=== PATIENT | female | born 1970 | race Caucasian/White ===

== ENCOUNTER 2024-08-24 15:05 | Emergency (ER) | payer OTHER, BC, MEDICAID, SELFPAY ==
[2024-08-24 15:17] VITALS: BP 162/137; PULSE 72; RESP 19; O2SAT 98; BMI 27.8
--- NOTE | 2024-08-24 15:27 | ED_ITS ---
HPI - Back Pain/Injury 2 General: Chief Complaint: Back Pain/Injury Stated Complaint: abdominal pain Time Seen by Provider: 08/24/24 15:15 Source: patient and family Mode of arrival: wheelchair Limitations: no limitations History of Present Illness: Patient is a nice 54-year-old female who presents to ED today with complaint of right sided back pain. Patient states 3 days ago she was seen at a walk-in clinic because she was having right sided pain along with urinary urgency and frequency. She was reportedly placed on ciprofloxacin for presumed UTI. She states today her pain went from a 3/10 immediately to a 10/10 and patient has been significantly uncomfortable since. She does report one previous kidney stone when she was . She is not running fevers. No vomiting. MD elicited complaint: back pain Pertinent past history: kidney stones Onset (ago): day(s) Timing: constant Severity: severe Pain scale (0-10): 10 Quality: sharp and stabbing Location: right lower back Radiation: abdomen Exacerbating factors: none Relieving factors: none Associated symptoms: Reports nausea, urinary urgency and other (urinary urgency/frequency); Deny abdominal pain, chills, dysuria, fatigue, fever(s) or vomiting Work related injury: No Related Data Previous Rx's ?Medication ?Instructions ?Recorded hydrocodone 5 mg-acetaminophen 325 1 tab PO .q 4-6 PRN pain #20 tabs 08/24/24 mg tablet ondansetron 4 mg disintegrating 4 mg PO Q8H PRN nausea and 08/24/24 tablet vomiting #14 tabs tamsulosin 0.4 mg capsule (Flomax) 0.4 mg PO DAILY #10 caps 08/24/24 Review of Systems 2 Const: Denies: fever(s), chills, body aches, fatigue or malaise Card: Denies: chest pain Resp: Denies: dyspnea GI: Reports: nausea; Denies: abdominal pain, vomiting or diarrhea : Reports: urinary frequency and urinary urgency; Denies: flank pain, difficulty voiding, dysuria, dribbling or pelvic pain Musc: Reports: back pain Skin/Breast: Denies: rash Neuro: Denies: headache(s), numbness in extremities, weakness in extremities, sensory changes or dizziness Physical Exam 2 Const: COMMON NORMALS: average body habitus, patient oriented x3, no limitations, healthy appearing, alert and well nourished GENERAL APPEARANCE: cooperative and in distress (appears uncomfortable secondary to pain) O RIENTATION/CONSCIOUSNESS: Yes awake, Yes oriented to person, Yes oriented to place and Yes oriented to time Eye: COMMON NORMALS: no scleral icterus Resp: COMMON NORMALS: normal respiratory effort and clear to auscultation bilaterally AUSCULTATION: clear to auscultation bilaterally Cardio: COMMON NORMALS: regular rate and regular rhythm RATE: regular rate RHYTHM: regular rhythm GI: COMMON NORMALS: Normal to inspection, nondistended, normoactive bowel sounds present, Soft to palpation, non-tender, No hepatosplenomegaly present and no masses INSPECTION: Yes normal to inspection PALPATION: Yes Soft to palpation and Yes No hepatosplenomegaly present : COMMON NORMALS: Yes no CVA tenderness BLADDER/KIDNEY EXAM: Yes no CVA tenderness Back/Pelvis: COMMON NORMALS: no CVA tenderness, thoracic and lumbar spine normal to inspection, no thoracic nor lumbar tenderness, thoraco-lumbar ROM normal and straight leg raise negative bilaterally BACK IMAGE (FEMALE): 1. TTP Extremity: GENERAL: Yes normal exam except as noted Neuro: COMMON NORMALS: patient oriented x3, moves all extremities, no focal motor deficits and no sensory deficits noted SENSORIUM/ORIENTATION: Yes alert, Yes oriented to person, Yes oriented to place and Yes oriented to time Skin: COMMON NORMALS: no rashes or lesions noted GENERAL SKIN EXAM: no rashes or lesions noted Course 2 Vital Signs: Vital signs: Vital Signs Pulse Rate 67 08/24/24 17:34 Respiratory Rate 22 H 08/24/24 16:03 Blood Pressure 159/70 08/24/24 17:34 Pulse Oximetry 95 08/24/24 17:34 Oxygen Delivery Me thod Room Air 08/24/24 16:59 MDM - Back Pain/Injury Medical Decision Making Pain was controllable here. Vital signs are stable. CT scan shows a 2 mm distal right ureter stone consistent with her symptoms. Incidental findings of adrenal adenomas and a left ovarian cyst were discussed with patient. Blood work showing a normal white count. Her BUN/Cr is normal. UA showing 3+ blood. She is positive for nitrates however leukocyte esterase is negative and only 0-4 WBCs. I think unlikely active infection. She is already taking ciprofloxacin. Patient be placed on pain/nausea medication as well as Flomax. She was given a urinary strainer prior to discharge and will have case management set her up with urology. Return to ED precautions discussed. Medical Records I reviewed the patient's medical records. Labs I reviewed the patient's lab results. 08/24/24 16:02 08/24/24 16:02 Radiology Impressions Abdomen/Pelvis CT 08/24/24 15:27 IMPRESSION: 1. 2 mm distal right ureteral stone with hydronephrosis 2. 5.7 cm left ovarian cyst 3. Bilateral adrenal adenomas Laboratory Results WBC 11.10 10^3/uL (3.29-11.43) 08/24/24 16:02 RBC 4.36 10^6/uL (3.85-5.65) 08/24/24 16:02 Hgb 13.70 g/dL (11.27-16.99) 08/24/24 16:02 Hct 39.9 % (36-47) 08/24/24 16:02 MCV 91.5 fl (85-98) 08/24/24 16:02 MCH 31.4 pg (27-33) 08/24/24 16:02 MCHC 34.3 g/dL (30-55) 08/24/24 16:02 RDW 12.5 % (12.1-15.1) 08/24/24 16:02 Plt Count 264 10^3/cmm (157-399) 08/24/24 16:02 MPV 11.4 fL (7.4-10.4) H 08/24/24 16:02 Neut % (Auto) 66.9 % 08/24/24 16:02 Lymph % (Auto) 22.6 % 08/24/24 16:02 Franklin % (Auto) 7.2 % 08/24/24 16:02 Eos % (Auto) 2.3 % 08/24/24 16:02 Baso % (Auto) 0.6 % 08/24/24 16:02 Neut # (Auto) 7.42 10^3/uL (1.8-7.7) 08/24/24 16:02 Lymph # (Auto) 2.5 10^3/uL (0.8-4.8) 08/24/24 16:02 Franklin # (Auto) 0.8 10^3/uL (0.2-0.9) 08/24/24 16:02 Eos # (Auto) 0.3 10^3/uL (0.0-0.8) 08/24/24 16:02 Baso # (Auto) 0.1 10^3/uL (0.0-0.1) 08/24/24 16:02 Nucleated RBC % (auto) 0 % 08/24/24 16:02 Nucleated RBCs # 0.0 /100WBC 08/24/24 16:02 Sodium 140 mmol/L (136-145) 08/24/24 16:02 Potassium 3.5 mmol/L (3.5-5.1) 08/24/24 16:02 Chloride 103 mmol/L (98-107) 08/24/24 16:02 Carbon Dioxide 25 mmol/L (22-29) 08/24/24 16:02 Anion Gap 15.5 (5-19) 08/24/24 16:02 BUN 13 mg/dL (6-20) 08/24/24 16:02 Creatinine 0.8 mg/dL (0.5-0.9) 08/24/24 16:02 GFR Calculation 74.5 mL/min (90-130) L 08/24/24 16:02 Glucose 84 mg/dL (65-115) 08/24/24 16:02 Calculated Osmolality 289 mOsm/kg (285-295) 08/24/24 16:02 Calcium 9.4 mg/dL (8.5-10.5) 08/24/24 16:02 Total Bilirubin 0.3 mg/dL (0.15-1.2) 08/24/24 16:02 AST 18 U/L (0-32) 08/24/24 16:02 ALT 11 U/L (0-33) 08/24/24 16:02 Alkaline Phosphatase 96 U/L (35-105) 08/24/24 16:02 Total Protein 7.1 g/dL (6.6-8.7) 08/24/24 16:02 Albumin 4.2 g/dL (3.5-5.2) 08/24/24 16:02 Globulin 2.9 g/dL (1.3-4.6) 08/24/24 16:02 Lipase 18 U/L (13-60) 08/24/24 16:02 Urine Color Yellow (Yellow) 08/24/24 16:55 Urine Appearance Clear (CLEAR) 08/24/24 16:55 Urine pH 5 (5-7) 08/24/24 16:55 Ur Specific [place] 1.030 (1.005-1.030) 08/24/24 16:55 Urine Protein 1+ (Negative) H 08/24/24 16:55 Urine Glucose (UA) Norm (Normal) 08/24/24 16:55 Urine Ketones 2+ (Negative) H 08/24/24 16:55 Urine Blood 3+ (Negative) H 08/24/24 16:55 Urine Nitrate Positive (Negative) A 08/24/24 16:55 Urine Bilirubin 2+ (Negative) H 08/24/24 16:55 Urine Urobilinogen 8 mg/dL (Negative) H 08/24/24 16:55 Ur Leukocyte Esterase Negative (Negative) 08/24/24 16:55 Urine RBC 5-10 /hpf (0-2) H 08/24/24 16:55 Urine WBC 0-4 /hpf (0-5) H 08/24/24 16:55 Ur Squamous Epith Cells 0-4 /hpf (0-5) H 08/24/24 16:55 Calcium Oxalate Crystal 25-40 /hpf H 08/24/24 16:55 Amorphous Sediment Not Reportable 08/24/24 16:55 Urine Bacteria Trace /hpf (NONE) 08/24/24 16:55 Urine Mucus 2+ /hpf 08/24/24 16:55 All radiology interpretation(s) finalized by discharge Discharge Plan Discharge Patient Disposition: Home Clinical Impression: Calculus of distal right ureter Condition: Stable Prescriptions: New hydrocodone-acetaminophen 5-325 mg tablet 1 tab PO .q 4-6 PRN (Reason: pain) Qty: 20 0RF ondansetron 4 mg tablet,disintegrating 4 mg PO Q8H PRN (Reason: nausea and vomiting) Qty: 14 0RF tamsulosin [Flomax] 0.4 mg capsule 0.4 mg PO DAILY Qty: 10 0RF Discharge Orders: Discharge ED (Routine); Ordered 08/24/24 Ordered By: Maria De Jesus Nagel Patient Instructions: Ureteral Stones (ED), Opioid Safety, Pain Management Activity Restrictions/Additional Instructions: As we discussed, you need to drink plenty of water to help push the stone through/out. You may take the pain and nausea meds as needed. Take the Flomax daily as directed. Case management should reach out to you early next week to help set you up with your follow-up urology appointment. You have been provided a urinary strainer. You may begin straining your urine and bring any passed stones with you to your urology appointment. You need to return to the emergency department for worsening or uncontrollable pain, repetitive episodes of vomiting, fevers, generally feeling worse or unwell, or any other concerns you may have. Finish your current course of antibiotics. Print Language: Maltese Coding Level of Care Code ED Rn Or Lvn for Jaqueline Day
--- NOTE | 2024-08-24 15:27 | CTR_ITS ---
PROCEDURE INFORMATION: Exam: CT Abdomen And Pelvis Without Contrast Exam date and time: 08/24/2024 4:21 PM Age: 54 years old Clinical indication: Abdominal pain; Flank; Right; Prior surgery; Surgery date: 6+ months; Surgery type: Gastric bypass, hernia; Additional info: R back pain TECHNIQUE: Imaging protocol: Computed tomography of the abdomen and pelvis without contrast. Radiation optimization: All CT scans at this facility use at least one of these dose optimization techniques: automated exposure control; mA and/or kV adjustment per patient size (includes targeted exams where dose is matched to clinical indication); or iterative reconstruction. COMPARISON: No relevant prior studies available. RADIATION DOSE METRICS: Total DLP (mGy-cm): 630.53 FINDINGS: Lungs: Lung bases are clear. No pleural effusion. Liver: Normal. No mass. Gallbladder and biliary ducts: Normal. No calcified stones. No ductal dilation. Pancreas: Normal. No ductal dilation. Spleen: Normal. No splenomegaly. Adrenal glands: Both adrenal glands are enlarged and demonstrate low density consistent with hyperplasia or adenoma. Kidneys and ureters: There is a 2 mm stone lying in the distal portion of the right ureter. Mild hydronephrosis is noted. Stomach and bowel: There is evidence of previous gastric surgery. Appendix: No evidence of appendicitis. Intraperitoneal space: Unremarkable. No free air. No significant fluid collection. Vasculature: Unremarkable. No abdominal aortic aneurysm. Lymph nodes: Unremarkable. No enlarged lymph nodes. Urinary bladder: Unremarkable as visualized. Reproductive: 5.7 cm left ovarian cyst noted. Bones/joints: Unremarkable. No acute fracture. Soft tissues: Unremarkable. CT/CT kidney stone [id number] IMPRESSION: 1. 2 mm distal right ureteral stone with hydronephrosis 2. 5.7 cm left ovarian cyst 3. Bilateral adrenal adenomas
[2024-08-24] MEDS: ondansetron 2 mg/ML SDV 2 mL 4 MG IVP (16:02)
[2024-08-24 16:03] VITALS: RESP 22; O2SAT 97
[2024-08-24] MEDS: ketorolac 60 mg/2 mL INJ 30 MG IVP (16:03)
[2024-08-24] MEDS: morphine 4 mg/mL SDV 1 mL IVP (16:03)
[2024-08-24 16:08] VITALS: BP 137/119; PULSE 65; O2SAT 98
[2024-08-24 16:23] LABS: Basophils # 0.1 10^3/uL (0.0-0.1); Basophils % 0.6 %; Eosinophils # 0.3 10^3/uL (0.0-0.8); Eosinophils % 2.3 %; Hematocrit 39.9 % (36-47); Lymphocytes # 2.5 10^3/uL (0.8-4.8); Lymphocytes % 22.6 %; Mean Corpuscular HGB Conc 34.3 g/dL (30-55); Mean Corpuscular Hemoglobin 31.4 pg (27-33); Mean Corpuscular Volume 91.5 fl (85-98); Mean Platelet Volume 11.4 fL (7.4-10.4); Monocytes # 0.8 10^3/uL (0.2-0.9); Monocytes % 7.2 %; Neutrophils # 7.42 10^3/uL (1.8-7.7); Neutrophils % 66.9 %; Nucleated Red Blood Cells % 0 %; Platelet Count 264 10^3/cmm (157-399); Red Blood Count 4.36 10^6/uL (3.85-5.65); Red Cell Distribution Width 12.5 % (12.1-15.1)
[2024-08-24 16:35] LABS: Alanine Aminotransferase 11 U/L (0-33); Albumin Level 4.2 g/dL (3.5-5.2); Alkaline Phosphatase 96 U/L (35-105); Anion Gap 15.5 (5-19); Aspartate Amino Transferase 18 U/L (0-32); Blood Urea Nitrogen 13 mg/dL (6-20); Calcium 9.4 mg/dL (8.5-10.5); Carbon Dioxide 25 mmol/L (22-29); Chloride 103 mmol/L (98-107); Globulin 2.9 g/dL (1.3-4.6); Glomerular Filtration Rate 74.5 mL/min (90-130); Glucose 84 mg/dL (65-115); Lipase 18 U/L (13-60); Osmolality Calculated 289 mOsm/kg (285-295); Potassium 3.5 mmol/L (3.5-5.1); Sodium 140 mmol/L (136-145); Total Bilirubin 0.3 mg/dL (0.15-1.2); Total Protein 7.1 g/dL (6.6-8.7)
[2024-08-24 16:59] VITALS: PULSE 74; O2SAT 99
[2024-08-24 17:23] LABS: Bilirubin Urine 2+ (Negative); Blood Urine 3+ (Negative); Glucose Urine UA Norm (Normal); Ketones Urine 2+ (Negative); Leukocyte Esterase Urine Negative (Negative); Nitrate Urine Positive (Negative); Protein Urine 1+ (Negative); Urine Appearance Clear (CLEAR); Urine Color Yellow (Yellow); Urobilinogen Urine 8 mg/dL (Negative); pH Urine 5 (5-7)
[2024-08-24 17:24] LABS: Add Urine Culture? No; Add Urine Microscopic? YES; Bacteria Urine TRACE /hpf; Calcium Oxalate Crystals Urine 25-40 /hpf; Mucus Urine 2+ /hpf; Squamous Epithelial Cell Urine 0-4 /hpf (0-5); WBC Urine 0-4 /hpf (0-5)
[2024-08-24 17:34] VITALS: BP 159/70; PULSE 67; O2SAT 95
--- NOTE | 2024-08-27 07:10 | DCPLANNER ---
faxed urology referral to [facility]
== END 2024-08-24 17:35 | disposition home or self-care (01) ==
PROVIDERS: Emergency Provider Physician Assistant
DX: N20.1 Calculus of ureter (principal)
CPT/HCPCS: 36415; 74176; 80053; 81001; 83690; 85025; 96374; 96375; 99285; J1885; J2270; J2405

== ENCOUNTER 2024-10-05 12:55 | Outpatient (CLI) | payer OTHER, SELFPAY ==
--- NOTE | 2024-10-05 13:03 | MR_ITS ---
WS: [id number] MRI LUMBAR SPINE NONCONTRAST HISTORY: ACUTE L SIDED LOW BACK PAIN W/SCIATICA COMPARISON: None available. TECHNIQUE: Sagittal and axial multisequence imaging is submitted. Normal lumbar alignment with no compression fractures or marrow edema. Disc spaces and vertebral body heights are well-preserved. Conus terminates normally at L1-2 disc level. L1-L2: Normal. L2-L3: Normal. L3-L4: Mild annular disc bulging with ligamentum flavum and facet arthritis. No disc protrusion. L4-L5: Mild annular disc bulging with ligamentum flavum and facet arthritis. There is mild disc contact on the traversing L5 nerve roots. No significant stenosis. L5-S1: Broad-based disc bulging with an additional LEFT subarticular recess disc protrusion contacting the LEFT S1 nerve root and displacing the nerve root. Additional more minor contact on the RIGHT S1 nerve root. Mild bilateral foraminal narrowing. Mild facet arthritis. Paravertebral soft tissues are negative. Partially visualized cyst in the LEFT pelvis corresponds to the LEFT ovarian cyst described on 08/24/2024. MR/MR lumbar spine wo con* [id number] IMPRESSION: 1. Moderate-sized LEFT subarticular recess disc protrusion at L5-S1 contacting and displacing the LEFT S1 nerve root. More minor contact on the RIGHT S1 nerv e root. Mild bilateral foraminal stenosis at L5-S1. 2. L4-5: Mild disc contact on the traversing L5 nerve roots. No stenosis.
== END 2024-10-05 12:56 | disposition home or self-care (01) ==
PROVIDERS: PCP Family Medicine; Visit Provider Family Medicine
DX: M54.42 Lumbago with sciatica, left side (principal); M51.27 Other intervertebral disc displacement, lumbosacral region; M48.07 Spinal stenosis, lumbosacral region; M51.369 Other intervertebral disc degeneration, lumbar region without mention of lumbar back pain or lower extremity pain; M24.28 Disorder of ligament, vertebrae; M47.896 Other spondylosis, lumbar region; M51.379 Other intervertebral disc degeneration, lumbosacral region without mention of lumbar back pain or lower extremity pain; M47.897 Other spondylosis, lumbosacral region; N83.202 Unspecified ovarian cyst, left side
CPT/HCPCS: 72148

== ENCOUNTER → 2024-10-30 15:16 | Outpatient (BNVA) | payer OTHER, BC, MEDICAID, SELFPAY | PROVIDERS: PCP Family Medicine; Visit Provider Orthopaedic Surgery | DX: M54.9 Dorsalgia, unspecified (principal) | CPT/HCPCS: 36415; 72110; 80053; 81001; 85025; 99204 ==

== ENCOUNTER 2024-11-05 08:46 | Day surgery (SDC) | payer OTHER, BC, MEDICAID, SELFPAY ==
[2024-11-05] VITALS (17 sets, daily range): BP systolic 114–163; BP diastolic 47–102; PULSE 62–89; RESP 10–19; TEMP 36.3–36.9; O2SAT 92–100; BMI 26.2
--- NOTE | 2024-11-05 09:46 | P.ANESASSM_ITS ---
Pre-Anesthetic Assessment Height/Weight: Height 1.63 m Weight 69.4 kg Temp Pulse Resp Pulse Ox O2 Del Method 98.0 F 70 18 99 Room Air 11/05/24 09:04 11/05/24 09:04 11/05/24 09:04 11/05/24 09:04 11/05/24 09:04 Preop Diagnosis: Left L5-S1 disc herniation with radiculopathy Operation Date: 11/05/24 10:30 Proposed Procedures p Laminotomy for herniated disc with decompression(Not Applicable) - Cornelio Campuzano, DO Familial anesthetic complications: None Was Beta Betty taken within 24 hours: N/A Was Clonidine taken within 24 hours: N/A Last intake: Intake Last Liquid Date 11/04/24 Last Liquid Time 00:00 Last Solid Date 11/04/24 Last Solid Time 00:00 Social Tobacco and No alcohol Exam alert, oriented x 3, clear to auscultation bilaterally and regular rate & rhythm Airway Mallampati: Class I Dentition: false GI hx gastric bypass Anesthetic Plan ASA status: 2 Anesthesia: General Risk of > 500 ml blood loss (7ml/kg in children): No Medications/Allergies Allergies Allergy/AdvReac Type Severity Reaction Status Date / Time rizatriptan Allergy Severe ALGY-Difficulty Verified 11/05/24 09:00 Breathing NSAIDS (Non-Steroidal Allergy Unknown Verified 11/05/24 09:00 Anti-Inflamma [facility] Anesthesia Social History Smoking and tobacco/nicotine status: current every day tobacco/nicotine user
[2024-11-05] MEDS: sodium chloride 0.9% 1,000 ML 30 ML IV (09:51)
--- NOTE | 2024-11-05 10:09 | W.PM.OPSUD ---
Surgery/Procedure H&P Update DATE OF PROCEDURE: November 05, 2024 DATE H&P PERFORMED: 10/30/24 H&P UPDATE INFORMATION: I have reviewed H&P completed within last 30 days, I have examined patient prior to procedure and No changes to prior documentation PREOP DIAGNOSIS: Left L5-S1 disc herniation with radiculopathy PLANNED PROCEDURE: Operation Date: 11/05/24 10:30 Proposed Procedures p Laminotomy for herniated disc with decompression(Not Applicable) - Cornelio Campuzano DO
[2024-11-05] MEDS: fentaNYL 50 mcg/mL INJ 2mL IVP ×2 (10:27→12:39)
[2024-11-05] MEDS: ceFAZolin 2,000 mg SDV 2000 MG IVP (11:12)
[2024-11-05] MEDS: lidocaine-epi 1% 20 mL INJ (11:45)
--- NOTE | 2024-11-05 12:34 | PM.OP ---
Operative Report Date of procedure: November 05, 2024 Pre-op diagnosis: Left L5/S1 disc herniation with radiculopathy of S1 Post-op diagnosis: same Procedure done: Left L5/S1 laminectomy with partial facetectomy and discectomy Surgeon: Cornelio Campuzano DO Estimated blood loss (mL): 5 Procedure: Left L5/S1 laminectomy with partial facetectomy and discectomy Patient is brought to the operative suite. After undergoing anesthesia they are placed in the prone position. All areas of impingement are well padded. Patient is then prepped and draped in the normal sterile fashion. A skin incision is made over the L5/S1 level. This is confirmed under c-arm guidance. A series of dilators are passed and the tubular retractor is docked on the L5 lamina. A bovie is used to clear the soft tissue off the lamina and the L 5/S1 facet joint. A high speed dean is then used to perform the laminectomy and take down the medial aspect of the L 5/S1 facet joint. A kerrison rongeure was then used to take down the remaining lamina and smooth the edge of the laminectomy up to the point where the ligamentum flavum attaches. Attention was then brought to the medial aspect of the facet joint. The remaining medial aspect of the superior and inferior aspect of the facet joint were taken down with the kerrison from the pedicle of L5 to S1. The facet joint had significant hypertrophy. Attention was then brought to the Ligamentum Flavum. The ligament was taken down from the lamina of L5 to S1 and out medially to the remaining facet joint. The ligament was thick. The dura was then exposed. The dura was in good repair. The L5 nerve was then traced with a curette out the L5/S1 foramen and found to be adequately decompressed. The S1 nerve was traced with a curette around the S1 pedicle. The lateral recess was opened with a kerrison helping to further decompress the S1 nerve. Wound is then irrigated copiously with saline and surgiflo is used to stop any bleeding. The tubular retractor is removed and the wound is closed with vicryl and monocryl suture. Glue is then used to protect the wound. A sterile dressing is then placed. Patient was then placed in the supine position and transferred to the PACU in stable condition.
[2024-11-05] MEDS: HYDROmorphone 1 mg/mL INJ 1ml 0.5 MG IVP ×2 (12:54→13:06)
--- NOTE | 2024-11-05 13:51 | XR_ITS ---
WS: [id number] RADIOGRAPHS LUMBAR SPINE; 2 IMAGES HISTORY: or pic, laminotomy COMPARISON: None available. Intraoperative imaging during laminotomy of the lumbar spine. There is a marker indicating the L5 level. XR/XR lumbar spine 1V [id number] IMPRESSION: Intraoperative imaging during laminotomy.
--- NOTE | 2024-11-05 14:10 | ANE.PACU2 ---
Inpatient post-anesthesia follow up: Airway intact: Yes Vital signs: Temperature 98.0 F Pulse Rate 62 Respiratory Rate 18 Blood Pressure 153/57 Pulse Oximetry 97 Oxygen Delivery Me thod Room Air Oxygen Flow Rate Fraction of Inspir ed Oxygen Hydration adequate: Yes Nausea and vomiting: No Pain level: 1 Mental status: Baseline
== END 2024-11-05 14:12 | disposition home or self-care (01) ==
PROVIDERS: PCP Family Medicine; Visit Provider Orthopaedic Surgery
PROC: (CPT 63030; principal; 2024-11-05 10:10)
DX: M51.17 Intervertebral disc disorders with radiculopathy, lumbosacral region (principal); Z98.84 Bariatric surgery status; Z88.8 Allergy status to other drugs, medicaments and biological substances; F17.200 Nicotine dependence, unspecified, uncomplicated
CPT/HCPCS: 63030; 72020; 76000; J0330; J0690; J1100; J1171; J2250; J2405; J2704; J3010; J3490; J7030; J9999

== ENCOUNTER → 2024-11-22 08:16 | Outpatient (BNVA) | payer OTHER, BC, MEDICAID, SELFPAY | PROVIDERS: PCP Family Medicine; Visit Provider Orthopaedic Surgery | DX: Z98.890 Other specified postprocedural states (principal) | CPT/HCPCS: 99024 ==